=== PATIENT | male | born 1965 | race Caucasian/White ===

== ENCOUNTER → 2021-05-10 | Outpatient (CLI) | payer OTHER | END | disposition home or self-care (01) | LOC: RAH 14:36 | PROVIDERS: ATTEND Family Medicine | DX: M16.11 Unilateral primary osteoarthritis, right hip (principal) | CPT/HCPCS: 73721 ==

== ENCOUNTER 2023-03-10 05:52 | Observation (INO) | payer OTHER ==
[2023-03-07 10:35] LABS: APPEARANCE,URINE CLEAR (CLEAR); BILIRUBIN,URINE NEGATIVE (NEGATIVE); COLOR,URINE LIGHT-YELLOW (YELLOW); GLUCOSE, URINE (UA) NEGATIVE (NEGATIVE); KETONES,URINE NEGATIVE (NEGATIVE); LEUKOCYTE ESTERASE ,URINE NEGATIVE Leu/uL (NEGATIVE); NITRATE,URINE NEGATIVE (NEGATIVE); OCCULT BLOOD,URINE SMALL (NEGATIVE); PROTEIN,URINE NEGATIVE (NEGATIVE); UROBILINOGEN,URINE 0.2 mg/dL (0.2-1.0)
[2023-03-07 10:40] VITALS: BP 131/72; PULSE 68; RESP 18
[2023-03-07 10:46] LABS: ADD UA MICROSCOPIC YES
[2023-03-07 10:47] LABS: MUCUS,URINE RARE LPF (None Seen); WBC,URINE 0-1 /HPF (0-1)
[2023-03-07 10:48] LABS: BASOPHILS # (AUTO) 0.07 K/uL (0.00-0.20); BASOPHILS % (AUTO) 1.4 % (0.0-5.0); EOSINOPHILS # (AUTO) 0.82 K/uL (0.00-0.70); EOSINOPHILS % (AUTO) 16.2 % (0.0-8.0); HEMATOCRIT 43.9 % (42-54); IMMATURE GRANULOCYTE ABSOLUTE 0.02 K/uL (0-1); LYMPHOCYTES # (AUTO) 1.7 K/uL (1.0-4.8); LYMPHOCYTES % (AUTO) 34.1 % (21.0-51.0); MEAN CORPUSCULAR HEMOGLOBIN 31.6 pg (27.0-33.0); MEAN CORPUSCULAR HGB CONC 34.2 g/dL (32.0-36.0); MEAN CORPUSCULAR VOLUME 92.6 fL (79-99); MONOCYTES # (AUTO) 0.5 K/uL (0.1-1.0); MONOCYTES % (AUTO) 9.1 % (3.0-13.0); NEUTROPHILS % (AUTO) 38.8 % (40.0-77.0); PLATELET COUNT (AUTO) 183 K/uL (130-400); RED BLOOD CELL COUNT(AUTO) 4.74 MIL/uL (4.50-6.20); RED CELL DISTRIBUTION WIDTH 13.2 % (11.0-15.5); WHITE BLOOD COUNT (AUTO) 5.1 K/uL (4.8-10.8)
[2023-03-07 10:59] LABS: INR 0.93 (0.85-1.15); PROTHROMBIN TIME 10.7 SEC (9.6-11.6)
[2023-03-07 11:01] LABS: PARTIAL THROMBOPLASTIN TIME 31.1 SEC (26.3-35.5)
[2023-03-07 11:15] LABS: ALBUMIN 3.6 g/dL (3.5-5.0); CARBON DIOXIDE 29 mmol/L (21-32); CHLORIDE 106 mmol/L (101-111); CREATININE 0.9 mg/dL (0.5-1.5); GLOMERULAR FILTR. RATE CALC 98 mL/min (>90); GLUCOSE,RANDOM 92 mg/dL (70-105); POTASSIUM 3.9 mmol/L (3.5-5.1); SODIUM SERUM 142 mmol/L (136-145); UREA NITROGEN, BLOOD 16 mg/dL (7-18)
[2023-03-07 11:18] LABS: CRP QUANTITATIVE < 2.00 mg/L (0.00-9.0)
[2023-03-10] VITALS (26 sets, daily range): BP systolic 103–141; BP diastolic 66–92; PULSE 64–80; RESP 13–18; O2SAT 96
[~2023-03-10] VITALS: Ht 185.4 cm; Wt 124.7 kg
[~2023-03-10 05:52] MED LIST: ALPR-410 PO; MELA1TAB17 PO; MOTEGRITY PO; PREG150C PO; TRAM50TA4 PO
[2023-03-10] MEDS ORDERED: LACTATED RINGERS 1000ML 1,000 ML IV ONE (06:13)
[2023-03-10] MEDS ORDERED: CEFAZOLIN SODIUM 1 GM VIAL ONE (06:13)
[2023-03-10] MEDS ORDERED: KETOROLAC 30MG VIAL (30MG/ML) ONE ×2 (06:36→06:55)
[2023-03-10] MEDS ORDERED: BUPIVACAINE/PF 0.5% 30ML VIAL ONE (06:36)
[2023-03-10] MEDS ORDERED: TRANEXAMIC ACID 1000MG/10ML ONE ×2 (06:36→08:07)
[2023-03-10] MEDS ORDERED: SUCCINYLCHOLINE 200MG/10ML SYR ONE (06:41)
[2023-03-10] MEDS ORDERED: LIDOCAINE PF 100MG/5ML (2%) SYRINGE 5ML ONE ×2 (06:41→09:37)
[2023-03-10] MEDS ORDERED: PROPOFOL 10 MG/ML 20ML VIAL IV ONE (06:43)
[2023-03-10] MEDS ORDERED: DEXAMETHASONE SOD PHOSPHATE 10MG/ML 1ML VIAL ONE (06:43)
[2023-03-10] MEDS ORDERED: ROCURONIUM 10MG/1ML SYR 10 MG/ML ML ONE (06:43)
[2023-03-10] MEDS ORDERED: ONDANSETRON 4MG INJ ONE (06:43)
[2023-03-10] MEDS ORDERED: FENTANYL CITRATE PF 50 MCG/1 ML 2ML VIAL ONE (06:43)
[2023-03-10] MEDS ORDERED: MIDAZOLAM HCL 1 MG/ML 2ML VIAL ONE (06:43)
[2023-03-10] MEDS ORDERED: ROPIVACAINE 0.5% 5MG/ML 30ML IJ ONE ×2 (06:51→06:55)
[2023-03-10] MEDS ORDERED: KETAMINE 50MG/ML SYRINGE 50 MG/ML DISP.SYRIN ONE (07:03)
[2023-03-10] MEDS ORDERED: DEXMEDETOMIDINE HCL 200 MCG/2 ML VIAL IV ONE (07:03)
[2023-03-10] MEDS ORDERED: CEFAZOLIN SODIUM 3 GM VIAL IVPB ONE (07:23)
[2023-03-10] MEDS ORDERED: PHENYLEPHRINE HCL 10 MG/ML 1ML VIAL IV ONE (07:45)
[2023-03-10] MEDS ORDERED: GLYCOPYRROLATE 1 MG/5 ML SYRINGE ONE (07:54)
[2023-03-10] MEDS ORDERED: NEOSTIGMINE 5MG/5ML SYR IV ONE (07:55)
[2023-03-10] MEDS ORDERED: MEPERIDINE-PF 25 MG/ML SYG ONE ×2 (09:22→10:47)
[2023-03-10] MEDS ORDERED: DiphenhydrAMINE HCL 50 MG/ML VIAL IVP PRN (10:30)
[2023-03-10] MEDS: 0.9%NACL 1000ML 1,000 ML IV SCH ×2 (10:30→19:00)
[2023-03-10] MEDS ORDERED: ONDANSETRON 4MG INJ IVP PRN (10:30)
[2023-03-10] MEDS: KETOROLAC 15MG/ML VIAL (15MG/ML) IV SCH ×2 (10:30→19:00)
[2023-03-10] MEDS ORDERED: HYDROCODONE/ACETAMINOPHEN 5/325 MG TAB PO PRN ×2 (10:30→11:30)
[2023-03-10] MEDS ORDERED: FERROUS FUMARATE 324 MG TABLET PO PRN (10:30)
[2023-03-10] MEDS ORDERED: CALCIUM CARB 500MG PO PRN (10:30)
[2023-03-10] MEDS ORDERED: POTASSIUM CHLORIDE 20MEQ/100ML 100 ML IV PRN (10:30)
[2023-03-10] MEDS ORDERED: POTASSIUM CHLORIDE 10% ELIXIR 20 MEQ/15 ML UDCUP PO PRN (10:30)
[2023-03-10] MEDS ORDERED: KETOROLAC 15MG/ML VIAL (15MG/ML) ONE (10:42)
[2023-03-10] MEDS: FENTANYL CITRATE PF 50 MCG/1 ML 2ML VIAL ONE ×2 (11:30→11:31)
[2023-03-10] MEDS: HYDROCODONE/ACETAMINOPHEN 5/325 MG TAB PO PRN ×3 (12:30→23:33)
[2023-03-10] MEDS: CEFAZOLIN SODIUM 2 GM VIAL IVPB SCH ×2 (14:58→23:31)
[2023-03-10] MEDS: GABAPENTIN 100 MG CAPSULE PO SCH ×2 (14:59→21:16)
[2023-03-10] MEDS: MELATONIN 5 MG TABLET PO SCH (21:15)
[2023-03-10] MEDS: DOCUSATE SODIUM 100 MG CAP PO SCH (21:16)
[2023-03-10] MEDS: ALPRAZOLAM 0.5 MG TABLET PO SCH (21:16)
[2023-03-11] VITALS (8 sets, daily range): BP systolic 102–113; BP diastolic 52–71; PULSE 64–90; RESP 20–22; O2SAT 98–100
[2023-03-11] MEDS: KETOROLAC 15MG/ML VIAL (15MG/ML) IV SCH (01:47)
[2023-03-11] MEDS: CYCLOBENZAPRINE HCL 10 MG TABLET PO PRN ×2 (03:07→19:51)
[2023-03-11 05:37] LABS: HEMATOCRIT 33.8 % (42-54); MEAN CORPUSCULAR HEMOGLOBIN 32.5 pg (27.0-33.0); MEAN CORPUSCULAR HGB CONC 35.5 g/dL (32.0-36.0); MEAN CORPUSCULAR VOLUME 91.6 fL (79-99); RED BLOOD CELL COUNT(AUTO) 3.69 MIL/uL (4.50-6.20); RED CELL DISTRIBUTION WIDTH 13.2 % (11.0-15.5); WHITE BLOOD COUNT (AUTO) 9.1 K/uL (4.8-10.8)
[2023-03-11 05:45] LABS: CREATININE 0.8 mg/dL (0.5-1.5); POTASSIUM 3.6 mmol/L (3.5-5.1)
[2023-03-11] MEDS: KCL 20 MEQ ERTAB PO PRN ×2 (06:07→19:51)
[2023-03-11] MEDS: HYDROCODONE/ACETAMINOPHEN 5/325 MG TAB PO PRN ×2 (06:22→14:35)
[2023-03-11] MEDS: MOTEGRITY PO SCH (09:00)
[2023-03-11] MEDS: DOCUSATE SODIUM 100 MG CAP PO SCH ×2 (09:19→19:51)
[2023-03-11] MEDS: GABAPENTIN 100 MG CAPSULE PO SCH ×3 (09:20→19:51)
[2023-03-11] MEDS: ASPIRIN 325MG TAB PO SCH (09:20)
[2023-03-11] MEDS: POLYETHYLENE GLYCOL 3350 17 GM POWD.PACK PO SCH (09:21)
[2023-03-11] MEDS: ALPRAZOLAM 0.5 MG TABLET PO SCH ×2 (09:22→21:42)
[2023-03-11] MEDS: KETOROLAC 15MG/ML VIAL (15MG/ML) IV PRN ×2 (10:21→18:03)
[2023-03-11] MEDS ORDERED: HYDROXYZINE 10 MG TABLET PO PRN (20:30)
[2023-03-11] MEDS: MELATONIN 5 MG TABLET PO SCH (21:42)
[2023-03-12] VITALS (7 sets, daily range): BP systolic 91–126; BP diastolic 57–72; PULSE 85–107; RESP 20–22; O2SAT 97
[2023-03-12] MEDS: HYDROCODONE/ACETAMINOPHEN 5/325 MG TAB PO PRN (01:01)
[2023-03-12] MEDS: CYCLOBENZAPRINE HCL 10 MG TABLET PO PRN (04:13)
[2023-03-12] MEDS: KETOROLAC 15MG/ML VIAL (15MG/ML) IV PRN ×2 (06:06→13:41)
[2023-03-12] MEDS: MOTEGRITY PO SCH (09:00)
[2023-03-12] MEDS: ASPIRIN 325MG TAB PO SCH (09:38)
[2023-03-12] MEDS: DOCUSATE SODIUM 100 MG CAP PO SCH ×2 (09:38→21:04)
[2023-03-12] MEDS: GABAPENTIN 100 MG CAPSULE PO SCH ×3 (09:38→21:04)
[2023-03-12] MEDS: ALPRAZOLAM 0.5 MG TABLET PO SCH (09:39)
[2023-03-12] MEDS: POLYETHYLENE GLYCOL 3350 17 GM POWD.PACK PO SCH (13:49)
[2023-03-12] MEDS ORDERED: HYDROCODONE/ACETAMINOPHEN 7.5/325 MG TAB PO PRN (16:00)
[2023-03-12] MEDS: HYDROCODONE/ACETAMINOPHEN 7.5/325 MG TAB PO PRN ×2 (16:59→21:07)
[2023-03-12] MEDS: HYDROXYZINE 10 MG TABLET PO SCH (16:59)
[2023-03-12] MEDS: MELATONIN 5 MG TABLET PO SCH (21:04)
[2023-03-12] MEDS: TIZANIDINE HCL 2 MG TABLET PO SCH (21:04)
[2023-03-13] VITALS: BP 89/60; PULSE 80; RESP 20
[2023-03-13] MEDS: KETOROLAC 15MG/ML VIAL (15MG/ML) IV PRN ×2 (03:11→10:22)
[2023-03-13 05:04] VITALS: BP 94/56; PULSE 79; RESP 20
[2023-03-13 08:00] VITALS: O2SAT 97
[2023-03-13] MEDS: TIZANIDINE HCL 2 MG TABLET PO SCH ×2 (08:12→14:29)
[2023-03-13] MEDS: GABAPENTIN 100 MG CAPSULE PO SCH ×2 (08:13→14:28)
[2023-03-13] MEDS: DOCUSATE SODIUM 100 MG CAP PO SCH (08:14)
[2023-03-13] MEDS: MOTEGRITY PO SCH (08:15)
[2023-03-13] MEDS: POLYETHYLENE GLYCOL 3350 17 GM POWD.PACK PO SCH (08:15)
[2023-03-13] MEDS: HYDROXYZINE 10 MG TABLET PO SCH ×2 (08:15)
[2023-03-13] MEDS: ASPIRIN 325MG TAB PO SCH (08:15)
[2023-03-13 08:35] VITALS: BP 115/65; PULSE 94; RESP 18
[2023-03-13] MEDS ORDERED: BISACODYL 10 MG SUPP.RECT RC PRN (10:30)
[2023-03-13] MEDS ORDERED: PSYLLIUM SEED 1 EACH PACKET PO ONE (11:00)
[2023-03-13] MEDS ORDERED: HYDR-4064 PO (13:25)
[2023-03-13] MEDS ORDERED: TIZA-194 PO (13:25)
[2023-03-13] MEDS ORDERED: ASPI-1026 PO (13:25)
[2023-03-13] MEDS ORDERED: DOCU-116 PO (13:25)
[2023-03-13] MEDS ORDERED: HYDR-3830 PO (13:25)
[2023-03-13] MEDS ORDERED: GABA100C PO (13:25)
[2023-03-13] MEDS: HYDROCODONE/ACETAMINOPHEN 7.5/325 MG TAB PO PRN (14:05)
== END 2023-03-13 15:15 | disposition home or self-care (01) ==
LOC: DAH 05:52 → DAHIP 05:53 → 4DH 11:20
PROVIDERS: ADMIT Student in an Organized Health Care Education/Training Program; ATTEND Student in an Organized Health Care Education/Training Program
DX: M17.0 Bilateral primary osteoarthritis of knee (principal); D62 Acute posthemorrhagic anemia; K59.03 Drug induced constipation; F43.10 Post-traumatic stress disorder, unspecified; T40.605A Adverse effect of unspecified narcotics, initial encounter; Z79.899 Other long term (current) drug therapy
CPT/HCPCS: 82040; 80048 ×2; 85025; 85610; 85730; 87088; 84134; 86140; 81001; 36415 ×2; 87641; 27447; 64447; 96365; 96366; 96375; 73560; 97161; 97039 ×6; 97116 ×7; 96376 ×2; 85027; 97530 ×4; 96372; G0378 ×72; A4663; A4215 ×2; J0690 ×4; J7120; J3010 ×2; J3490 ×6; J0330; J1100; J2710; J2001 ×2; J2250; J2704; J2405; J1885 ×11; J2175 ×2; J2795 ×2; J2371; G0168; A4649 ×3; C1713; C1776; A6255; A5120; A4223; A4222; A4221

== ENCOUNTER 2024-06-02 06:27 | Observation (INO) | payer OTHER ==
[2024-05-27 12:54] VITALS: BP 127/85; PULSE 85; RESP 18; TEMP 97.7
[~2024-06-02] VITALS: Ht 185.4 cm; Wt 118.8 kg
[2024-06-02] VITALS (26 sets, daily range): BP systolic 97–133; BP diastolic 55–99; PULSE 53–99; RESP 10–20; TEMP 97–97.8; O2SAT 97
[~2024-06-02 06:27] MED LIST changes: -ALPR-410 PO; +ALPR0.5T8 PO; +BISA-151 PO; +DULO30CA52 PO; +GABA300C PO; -MELA1TAB17 PO; -PREG150C PO; +TRAM100C3 PO; -TRAM50TA4 PO
[2024-06-02] MEDS: LACTATED RINGERS 1000ML 1,000 ML IV ONE (07:24)
[2024-06-02] MEDS: ceFAZolin SODIUM 2 GM VIAL ONE (07:24)
[2024-06-02] MEDS ORDERED: LIDOCAINE PF 100MG/5ML (2%) SYRINGE 5ML ONE (07:30)
[2024-06-02] MEDS ORDERED: proPOFol 10 MG/ML 20ML VIAL IV ONE (07:31)
[2024-06-02] MEDS ORDERED: rocuRONium bROMide 10MG/1ML 5ML VL ONE ×2 (07:31→09:37)
[2024-06-02] MEDS ORDERED: ondanSETRON 4MG INJ ONE (07:31)
[2024-06-02] MEDS ORDERED: MIDAZOLAM HCL 1 MG/ML 2ML VIAL ONE (07:31)
[2024-06-02] MEDS ORDERED: dexaMETHasone SOD PHOSPHATE 10MG/ML 1ML VIAL ONE (07:31)
[2024-06-02] MEDS ORDERED: FENTanyl CITRate PF 50 MCG/1 ML 2ML VIAL ONE ×2 (07:32→10:15)
[2024-06-02] MEDS ORDERED: ROPivacaine 0.5% 5MG/ML 30ML ONE ×2 (07:37→08:06)
[2024-06-02] MEDS ORDERED: ketaMINE 50MG/ML SYRINGE 50 MG/ML DISP.SYRIN ONE (07:37)
[2024-06-02] MEDS: TRANEXAMIC ACID 1000MG/10ML ONE (09:20)
[2024-06-02] MEDS ORDERED: CALCIUM CARB 500MG PO PRN (09:30)
[2024-06-02] MEDS: ketOROlac 15MG/ML VIAL (15MG/ML) IV SCH (09:30)
[2024-06-02] MEDS ORDERED: ondanSETRON 4MG INJ IVP PRN (09:30)
[2024-06-02] MEDS ORDERED: traMADol HCL 50 MG TABLET PO PRN (09:30)
[2024-06-02] MEDS ORDERED: PoTASSium chloRIDE 20MEQ/100ML 100 ML IV PRN (09:30)
[2024-06-02] MEDS ORDERED: PoTASSium chl 10% ELIXIR 20MEQ 20 MEQ/15 ML UDCUP PO PRN (09:30)
[2024-06-02] MEDS ORDERED: PoTASSium chloRIDE 20MEQ ER 20 MEQ ERTAB PO PRN (09:30)
[2024-06-02] MEDS ORDERED: FERROUS FUMARATE 324 MG TABLET PO PRN (09:30)
[2024-06-02] MEDS ORDERED: GLYCOPYRROLATE 0.2 MG/ML 5 ML VIAL ONE (10:49)
[2024-06-02] MEDS ORDERED: NEOSTIGMINE METHYLSULFATE 1MG/ML IV ONE (10:49)
--- NOTE | 2024-06-02 11:59 | OP ---
Operative Note: DATE OF PROCEDURE: 06/02/24 SURGEON: MAYANK SHIPLEY MD PSYCHOMETRICIAN: Evans Tracy ANESTHESIA: General and fascia iliaca block ANESTHESIOLOGIST/IMMUNOCHEMIST: Fermin Beltran CRNA PREOPERATIVE DIAGNOSIS: Right hip osteoarthritis POSTOPERATIVE DIAGNOSIS: Right hip osteoarthritis PROCEDURE: Right total hip arthroplasty ESTIMATED BLOOD LOSS: 400 cc INDICATIONS: 58-year-old male with a right hip osteoarthritis failing conservative management. After discussion of the risks, benefits, and alternatives, the patient voluntarily agreed to undergo a right total hip arthroplasty. IMPLANTS: [employer]let[employer]hew R3 60 mm shell it was 6.5 screws x2 and central hole cover, 20 degree XL PE liner, 13 standard offset anthology stem with a 44 mm Oxinium minus forehead DESCRIPTION OF PROCEDURE: Patient was properly identified in the preoperative holding area. Surgical site marking was verified and surgery consent reviewed. The patient was then taken to the operating room and placed in supine position on the OR table. After induction of general anesthesia, preoperative antibiotics were given. The patient was then transitioned in the lateral decubitus position with the right side up. All bony prominences were well-padded. Right lower extremity was then prepped and draped in the usual sterile fashion. Surgical time out was done verifying correct surgery, side, site, and location to be performed. We then began the procedure by making approximately 15 cm long incision centered over the greater trochanter. Here we came sharply through skin down to the fascia. Hemostasis was then achieved using Bovie electrocautery. We then incised fascia in line with the skin incision and finger split the tensor muscle proximally. We then placed our Charnley retractor. At this point we identified the vastus ridge and began elevating the full-thickness soft tissue flap off of the vastus ridge, splitting the vastus lateralis and gluteus muscles as necessary. We then proceeded to externally rotate the femur while making this flap. We resected part of the anterior capsule. The femoral head was then delivered into view. We then dislocated the hip and performed our femoral neck osteotomy approximately half fingerbreadth proximal lesser trochanter. We then placed our retractors around the superior and anterior portion of the acetabulum and began to remove the labrum circumferentially. We then began reaming the acetabulum where we reamed up to a size 58 ensuring appropriate anteversion and abduction. We then proceeded to trial with the size 60 acetabular component and this appeared to sit well. We opened our size 60 acetabular component and after irrigating out the wound malleted this into place. It appeared to have good press-fit however we elected to place 6.5 screws x2. We drilled and filled the screws in standard fashion in the posterior superior portion of the cup. We then placed the manhole cover on the center of the cup. The wound was thoroughly irrigated out further and we placed the acetabular liner and impacted this in place in standard fashion. We then proceeded to reposition our retractors to elevate the proximal femur out of the wound. We then used the box chisel and canal finder to began preparing the femoral side and sequentially broached up to the aforementioned size stem. Once we felt we had good fit, fill, and control of the femur with the stem in place we then used our trial head component and reduce the hip. Upon reduction, we had appropriate soft tissue tensioning, limb length and stable range of motion. We therefore dislocated the hip once more removed our trial components thoroughly irrigated the out the wound and placed our final femoral component in standard fashion. This appeared to sit slightly proud compared to our trials we elected to trial the head once more using a minus trial. The hip was then reduced with the final components in place. It was found to be stable through range of motion with appropriate soft tissue tensioning and appropriate limb length. At this point we placed a bump under the knee and the foot on the male with a stack of towels to allow for internal rotation. We repaired the abductors back to the greater trochanter using #5 Ethibond. We then repaired the rent in the vastus lateralis and gluteus muscles using #1 Vicryl in a running fashion. We removed our Charnley retractor and began to repair the IT band using #1 Vicryl in interrupted [id number] fashion. At this point we began to close her subcutaneous tissue using 2-0 Vicryl. Running 3-0 Monocryl in subcuticular fashion with Dermabond placed over this for the skin. Island barrier dressing was then applied. Patient was returned to supine position with abduction pillow placed, awakened from anesthesia, and taken to the recovery room in stable condition. MAYANK SHIPLEY MD Jun 02, 2024 11:59
[2024-06-02] MEDS: GABApentin 100 MG CAPSULE PO SCH (12:00)
--- NOTE | 2024-06-02 12:00 | HMCIMG ---
HIP UNILAT 4VW RIGHT REASON: RT total hip arthroplasty COMPARISON: None TECHNIQUE: 6 surgical spot views are obtained documenting right total hip joint prosthesis placement. Fluoroscopy time was 0.15 minutes. IMPRESSION: 1. Documentation of right total hip arthroplasty procedure.
[2024-06-02] MEDS ORDERED: ketOROlac 30MG VIAL (30MG/ML) ONE (12:15)
[2024-06-02] MEDS: FENTanyl CITRate PF 50 MCG/1 ML 2ML VIAL ONE (12:55)
[2024-06-02] MEDS: acetaMINOPHEN 100 ML ONE (12:55)
[2024-06-02] MEDS: MEPERIDINE-PF 25 MG/ML SYG ONE ×2 (12:55→13:15)
--- NOTE | 2024-06-02 13:30 | HMCIMG ---
Exam: Right hip 2 views Reason: Post right hip arthroplasty. FINDINGS: There is a right total hip joint prosthesis in place. There are no fractures in the remaining bone. Soft tissues appear unremarkable. IMPRESSION: 1. Documentation of right hip arthroplasty.
--- NOTE | 2024-06-02 13:40 | NUR ---
ORTHO COORDINATOR: TEACHING REGARDING DVT AND PNEUMONIA PREVENTION, PAIN EXPECTATIONS AND PAIN MANAGEMENT. PATIENT IN BED. MOTHER AT BEDSIDE. B SCD'S APPLIED. LOCATING MACHINE. RESPIRATORY THERAPY CALLED FOR INCENTIVE SPIROMETER AND TO REINFORCE PROPER TECHNIQUE. ICE PACK APPLIED TO R HIP. PATIENT DROWSY. PURPOSE OF SCD'S AND FOOT FLEXION AND EXTENSION REVIEWED. PURPOSE OF INCENTIVE SPIROMETER FOR PNEUMONIA PREVENTION REVIEWED.
[2024-06-02] MEDS: ceFAZolin SODIUM 2 GM VIAL IVP SCH (16:08)
[2024-06-02] MEDS: 0.9%NACL 1000ML 1,000 ML IV SCH (16:08)
[2024-06-02] MEDS: HYDROcodone/APAP 5/325 1 TAB TABLET PO PRN (16:09)
--- NOTE | 2024-06-02 18:02 | NUR ---
Discharge Planning: Pt. states he lives with his spouse in [place] and is here in [place] visiting his mother. Contact number for Dhara Infante is . PCP is Dr. Harry Flynn and he obtains his meds through the [facility]. Pt. states he is independent with ADL's. No home health or provider services, but has a walker and a bedside comode at home. DCP is for home. No d/c needs at present time.
[2024-06-02] MEDS: BisaCODYL 5 MG TABLET.DR PO SCH (20:13)
[2024-06-02] MEDS: doCUSate SODIUM 100 MG CAP PO SCH (20:13)
[2024-06-02] MEDS: duloXETine HCL 30 MG CAP PO SCH (20:13)
[2024-06-02] MEDS: GABAPENTIN 300 MG CAPSULE PO SCH (20:13)
--- NOTE | 2024-06-02 20:15 | NUR ---
MEDS SHIFT ASSESSMENT DONE, PLEASE REFER TO CHART. PT CLAIMS OF SX PAIN TO RT HIP. MEDICATED WITH NORCO PO AND DUE MEDS ADMINISTERED, TOLERATED WELL. ICE PACKS PROVIDED FOR RT HIP SX. KEPT RESTED AND COMFORTABLE IN BED. CALL LIGHT WITHIN REACH. WILL RE-ASSESS PT.
[2024-06-03] VITALS: BP 111/65; PULSE 83; RESP 18; TEMP 98.6
--- NOTE | 2024-06-03 00:50 | NUR ---
REPORT ORTHO BED AVAILABLE IN 4TH FLOOR. CALLED REPORT TO NANCY INGRAM. AT 0055 PT CLAIMS OF SX PAINS TO RLE. TORADOL DOSE DUE ADMINISTERED, TOLERATED WELL. AT 0115 MOVED PT TO ROOM 405. TRANSFERRED CARE TO NURSE NATALY AT THIS TIME.
[2024-06-03 03:14] VITALS: BP 94/54; PULSE 77; RESP 20; TEMP 98.3
[2024-06-03 05:15] LABS: HEMATOCRIT 33.9 % (42-54); MEAN CORPUSCULAR HEMOGLOBIN 32.5 pg (27.0-33.0); MEAN CORPUSCULAR HGB CONC 35.1 g/dL (32.0-36.0); MEAN CORPUSCULAR VOLUME 92.6 fL (79-99); RED BLOOD CELL COUNT(AUTO) 3.66 MIL/uL (4.50-6.20); RED CELL DISTRIBUTION WIDTH 12.6 % (11.0-15.5); WHITE BLOOD COUNT (AUTO) 10.3 K/uL (4.8-10.8)
[2024-06-03 07:35] VITALS: BP 116/62; PULSE 94; RESP 20; TEMP 97.6
--- NOTE | 2024-06-03 07:53 | PN ---
Ortho postop day one. This morning patient is out of bed to chair. Reports acceptable pain control however states that he did not rest well overnight stating that it is typical reaction after anesthesia for him. Vital signs are stable. Afebrile. Voiding on his own without difficulty. Operative findings discussed with the patient. Laboratory results reviewed. Noted to have a drop in hemoglobin and hematocrit as expected after undergoing right total hip arthroplasty. Patient is currently asymptomatic. We will address per protocol as necessary. Dressing intact. Ice present to operative site. No obvious lower extremity edema. Negative Homans. Distal neurovascular exam intact. Performing incentive spirometry as instructed. Patient states that he ambulated a good amount yesterday with physical therapy. He is eager to leave today. States that he has all DME equipment at home. [facility] so that his mother can pickling tank operator his medications upon discharge. Assessment: Status post right total hip arthroplasty. Asymptomatic acute postoperative blood loss anemia. Plan: Continue with Dr. Kee's total hip arthroplasty protocol and discharge planning. Asymptomatic acute postoperative blood loss anemia addressed with the protocol as necessary Vitals/Labs Vital Signs Date Time Temp Pulse Resp B/P (MAP) Pulse Ox O2 Delivery O2 Flow Rate FiO2 06/03/24 03:14 98.2 77 20 94/54 99 Room Air 06/02/24 20:15 0 21 Laboratory Tests 06/03/24 05:01 Medications Current Medications Cefazolin Sodium 2 gm STK-MED ONCE .ROUTE Last administered on 06/02/24at 09:10; Start 06/02/24 at 06:33; Stop 06/02/24 at 06:33; Status DC Lactated Ringer's 1,000 ml @ As Directed STK-MED ONCE IV Last administered on 06/02/24at 07:24; Start 06/02/24 at 06:33; Stop 06/02/24 at 06:33; Status DC Lidocaine HCl 100 mg STK-MED ONCE .ROUTE; Start 06/02/24 at 07:30; Stop 06/02/24 at 07:31; Status DC Ondansetron HCl 4 mg STK-MED ONCE .ROUTE; Start 06/02/24 at 07:31; Stop 06/02/24 at 07:31; Status DC Dexamethasone Sodium Phosphate 10 mg STK-MED ONCE .ROUTE; Start 06/02/24 at 07:31; Stop 06/02/24 at 07:31; Status DC Propofol 200 mg STK-MED ONCE IV; Start 06/02/24 at 07:31; Stop 06/02/24 at 07:31; Status DC Midazolam HCl 2 mg STK-MED ONCE .ROUTE; Start 06/02/24 at 07:31; Stop 06/02/24 at 07:32; Status DC Rocuronium Zebulon 50 mg STK-MED ONCE .ROUTE; Start 06/02/24 at 07:31; Stop 06/02/24 at 07:32; Status DC Fentanyl Citrate 100 mcg STK-MED ONCE .ROUTE; Start 06/02/24 at 07:32; Stop 06/02/24 at 07:32; Status DC Ketamine HCl 50 mg STK-MED ONCE .ROUTE; Start 06/02/24 at 07:37; Stop 06/02/24 at 07:37; Status DC Ropivacaine 150 mg STK-MED ONCE .ROUTE; Start 06/02/24 at 07:37; Stop 06/02/24 at 07:37; Status DC Ropivacaine 150 mg STK-MED ONCE .ROUTE; Start 06/02/24 at 08:06; Stop 06/02/24 at 08:06; Status DC Tranexamic Acid 1,000 mg STK-MED ONCE .ROUTE Last administered on 06/02/24at 09:20; Start 06/02/24 at 08:26; Stop 06/02/24 at 08:27; Status DC Sodium Chloride 1,000 ml @ 100 mls/hr Q10H IV Last administered on 06/03/24at 03:42; Start 06/02/24 at 09:30; Stop 06/03/24 at 09:29 Polyethylene Glycol 17 gm DAILY PO; Start 06/03/24 at 09:00; Stop 07/03/24 at 08:59 Bisacodyl 10 mg DAILY PRN RC; Start 06/05/24 at 09:30; Stop 07/05/24 at 09:29 Ketorolac Tromethamine 15 mg Q6H PRN IV; Start 06/03/24 at 09:30; Stop 06/07/24 at 09:29 Ferrous Fumarate 324 mg DAILY PRN PO; Start 06/02/24 at 09:30; Stop 07/02/24 at 09:29 Calcium Carbonate 500 mg Q12H PRN PO; Start 06/02/24 at 09:30; Stop 07/02/24 at 09:29 Ondansetron HCl 4 mg Q6H PRN IVP; Start 06/02/24 at 09:30; Stop 07/02/24 at 09:29 Cefazolin Sodium 2 gm Q8H IVP Last administered on 06/02/24at 22:15; Start 06/02/24 at 14:30; Stop 06/02/24 at 22:31; Status DC Gabapentin 100 mg DAILY@0700,1200 PO Last administered on 06/03/24at 06:17; Start 06/02/24 at 12:00; Stop 07/02/24 at 11:59 Cyclobenzaprine HCl 5 mg Q8H PRN PO; Start 06/02/24 at 09:30; Stop 07/02/24 at 09:29 Docusate Sodium 100 mg BID PO Last administered on 06/02/24at 20:13; Start 06/02/24 at 21:00; Stop 07/02/24 at 20:59 Ketorolac Tromethamine 15 mg Q8H IV Last administered on 06/03/24at 00:55; Start 06/02/24 at 09:30; Stop 06/03/24 at 01:31; Status DC Potassium Chloride 100 ml @ 100 mls/hr AD PRN IV; Start 06/02/24 at 09:30; Stop 07/02/24 at 09:29 Potassium Chloride 20 meq AD PRN PO; Start 06/02/24 at 09:30; Stop 07/02/24 at 09:29 Potassium Chloride 20 meq AD PRN PO; Start 06/02/24 at 09:30; Stop 07/02/24 at 09:29 Tramadol HCl 50 mg Q6H PRN PO; Start 06/02/24 at 09:30; Stop 06/07/24 at 09:29 Acetaminophen/ Hydrocodone Bitart Q4H PRN PO Last administered on 06/03/24at 03:43; Start 06/02/24 at 09:30; Stop 06/07/24 at 09:29 Bisacodyl 5 mg HS PO Last administered on 06/02/24at 20:13; Start 06/02/24 at 21:00; Stop 07/02/24 at 20:59 Duloxetine HCl 30 mg HS PO Last administered on 06/02/24at 20:13; Start 06/02/24 at 21:00; Stop 07/02/24 at 20:59 Gabapentin 300 mg HS PO Last administered on 06/02/24at 20:13; Start 06/02/24 at 21:00; Stop 07/02/24 at 20:59 Home Med ([Motegrity] 1 TAB) DAILY PO; Start 06/03/24 at 09:00; Stop 07/03/24 at 08:59 Aspirin 81 mg BID PO; Start 06/03/24 at 09:00; Stop 07/03/24 at 08:59 Rocuronium Zebulon 50 mg STK-MED ONCE .ROUTE; Start 06/02/24 at 09:37; Stop 06/02/24 at 09:37; Status DC Fentanyl Citrate 100 mcg STK-MED ONCE .ROUTE; Start 06/02/24 at 10:15; Stop 06/02/24 at 10:15; Status DC Glycopyrrolate 1 mg STK-MED ONCE .ROUTE; Start 06/02/24 at 10:49; Stop 06/02/24 at 10:50; Status DC Neostigmine Methylsulfate 10 mg STK-MED ONCE IV; Start 06/02/24 at 10:49; Stop 06/02/24 at 10:50; Status DC Ketorolac Tromethamine 30 mg STK-MED ONCE .ROUTE; Start 06/02/24 at 12:15; Stop 06/02/24 at 12:15; Status DC Fentanyl Citrate 100 mcg STK-MED ONCE .ROUTE Last administered on 06/02/24at 13:10; Start 06/02/24 at 12:44; Stop 06/02/24 at 12:44; Status DC Meperidine HCl 25 mg STK-MED ONCE .ROUTE Last administered on 06/02/24at 12:55; Start 06/02/24 at 12:44; Stop 06/02/24 at 12:44; Status DC Acetaminophen 100 ml @ As Directed STK-MED ONCE .ROUTE Last administered on 06/02/24at 12:55; Start 06/02/24 at 12:44; Stop 06/02/24 at 12:45; Status DC Meperidine HCl 25 mg STK-MED ONCE .ROUTE Last administered on 06/02/24at 13:15; Start 06/02/24 at 13:02; Stop 06/02/24 at 13:02; Status DC MICHELE SALDANA NP Jun 03, 2024 07:53
[2024-06-03 08:10] VITALS: O2SAT 96
[2024-06-03] MEDS: polyETHYLene GLYCol 3350 17 GM POWD.PACK PO SCH (08:38)
[2024-06-03] MEDS: ASPIRIN 81 MG EC TAB PO SCH (08:38)
[2024-06-03] MEDS: MOTEGRITY PO SCH (08:41)
[2024-06-03] MEDS ORDERED: CYCL-309 PO (09:19)
[2024-06-03] MEDS ORDERED: GABA100C PO (09:19)
[2024-06-03] MEDS ORDERED: AEC81 PO (09:19)
[2024-06-03] MEDS ORDERED: HYDR-4060 PO (09:19)
[2024-06-03] MEDS ORDERED: ketOROlac 15MG/ML VIAL (15MG/ML) IV PRN (09:30)
[2024-06-03 11:44] VITALS: BP 144/68; PULSE 87; RESP 20; TEMP 97.9
[2024-06-03] MEDS: CYCLOBENZAPRINE HCL 10 MG TABLET PO PRN (12:20)
--- NOTE | 2024-06-03 13:28 | NUR ---
PATIENT BEING DC HOME WITH FRIEND AT BEDSIDE, REMOVED 20G PIV FROM THE RIGHT HAND, TIP INTACT, NO REDNESS OR SWELLING NOTED TO SITE, APPLIED A GAUZE AND TAPE DRESSING TO SITE. PATIENT DENIES ANY DISCOMFORT AT THIS TIME. INFORMED PATIENT TO CONTINUE USING IS ORDERED, INFORMED PATIENT OF FOLLOW UP APPOINTMENT WITH DR. SHIPLEY AT 06/23/24 AT 945AM, PATIENT AGREED TO FOLLOW UP. INFORMED PATIENT TO CONTINUE DOING PT RECOMMENDED EXERCISE AND NOT TO BEND AT 90 DEGREE ANGLE. IF PATIENT IS TO HAVE ANY QUESTIONS REGARDING REFILLS ON PAIN MEDS TO FOLLOW UP WITH [facility] OFFICE. PATIENT BEING WHEELED DOWN TO LOBBY BY JOVI LÓPEZ TO PRIVATE VEHICLE PROVIDED BY FRIEND.
[2024-06-05] MEDS ORDERED: BisaCODYL 10 MG SUPP.RECT RC PRN (09:30)
== END 2024-06-03 13:11 | disposition home or self-care (01) ==
LOC: DAH 06:27 → DAHIP 06:28 → DAH 06:28 → 3BH 13:45 → 4BH 06-03 00:58
PROVIDERS: ADMIT Student in an Organized Health Care Education/Training Program; ATTEND Student in an Organized Health Care Education/Training Program
DX: M16.11 Unilateral primary osteoarthritis, right hip (principal); M51.369 Other intervertebral disc degeneration, lumbar region without mention of lumbar back pain or lower extremity pain; M19.90 Unspecified osteoarthritis, unspecified site; K59.00 Constipation, unspecified; M54.9 Dorsalgia, unspecified; F41.0 Panic disorder [episodic paroxysmal anxiety]; E66.9 Obesity, unspecified; Z68.35 Body mass index [BMI] 35.0-35.9, adult; Z79.899 Other long term (current) drug therapy; Z98.890 Other specified postprocedural states
CPT/HCPCS: 84134; 86140; 36415 ×2; 87641; 64450; 27130; 96374; 96376 ×2; 96375; 73503; 73521; 97161; 97116 ×2; 80048; 85027; G0378 ×23; A4663; C1776; J7120; J3010 ×3; J3490 ×5; J1100; J2003; J2250; J2704; J2405; J1885 ×3; J2710; J2175 ×2; J2795 ×2; J0690 ×3; A4649 ×2; A4930; A6255; A5120; A4215; A4223 ×2; A4213; A4222; A4221; A4216